=== PATIENT | female | born 1960 | race Caucasian/White ===

== ENCOUNTER 2017-10-09 09:24 | Emergency (ER) | payer MEDICAID ==
[~2017-10-09] VITALS: Ht 152.4 cm; Wt 78.5 kg
[2017-10-09 09:26] VITALS: BP 138/78
--- NOTE | 2017-10-09 09:32 | NUR ---
PT AMBULATES TO BED 11
--- NOTE | 2017-10-09 09:36 | NUR ---
57YO F TO ER W/C/O PELVIC/VAGINAL PAINAND CRAMPING/CENTRAL LBP X2 DAYS WITH BLOOD CLOTS. PT STATES THAT "I HAVE NOT HAD A PERIOD FOR 2 YRS, AND I HAVE NOT HAD SEX IN FIVE YEARS", PT DENIES ANY REACEN TRAUMA OR INJURY, PT STATES RED TINGED DISCHARGE, BURNING WITH URINATION AND NASEUA. AAOX4, LS CLEAR THROUGHOUT, BS HYPOACTIVE, ABD SOFT ROUND AND NON TENDER, TENDER NESS TO TOUCH IN CENTRAL LOWER BACK. ER MD MADE AWARE. PT POSITIONED FOR COMFORT. WILL CONTINUE TO MONITOR
--- NOTE | 2017-10-09 09:39 | NUR ---
Patient being evaluated by physician at bedside.
--- NOTE | 2017-10-09 09:40 | NUR ---
Female Editorial Manager accompanied female patient for Pelvic Exam WITH DR BATES
[2017-10-09 09:43] LABS: BILIRUBIN,URINE NEGATIVE (NEGATIVE); BLOOD, URINE MODERATE (NEGATIVE); NITRITE, URINE NEGATIVE (NEGATIVE); PH,URINE 5.5 (5.0-9.0); UGLUCOSE NEGATIVE (NEGATIVE)
[2017-10-09] MEDS ORDERED: IBUPROFEN 600 MG TAB PO ONE (09:45)
[2017-10-09] MEDS ORDERED: cefTRIAXone 1,000 MG in LIDOCAINE 1% ***ER ONLY *** 2.1 ML IM ONE (09:45)
[2017-10-09 09:53] LABS: APPEARANCE,URINE SLIGHTLY CLOUDY (CLEAR); COLOR,URINE YELLOW (YELLOW); LEUKOCYTE ESTERASE ,URINE 3+ (NEGATIVE)
[2017-10-09] MEDS ORDERED: cefTRIAXone 1,000 MG VIAL ONE (09:54)
[2017-10-09 10:00] LABS: RBC,URINE 3-10 (FEW) /HPF (0-5)
[2017-10-09] MEDS ORDERED: LIDOCAINE MPF 1% - 5 mL VIAL 5 ML ONE (10:00)
[2017-10-09 10:25] VITALS: BP 131/81
--- NOTE | 2017-10-09 10:25 | NUR ---
Patient discharged with v/s stable. Written and verbal after care instructions given and explained. Patient alert, oriented and verbalized understanding of instructions. Ambulatory with steady gait. All questions addressed prior to discharge. ID band removed. Patient advised to follow up with PMD. Rx of LEVAQUIN, MOTRIN given. Patient educated on indication of medication including possible reaction and side effects. Opportunity to ask questions provided and answered.
== END 2017-10-09 10:25 | disposition home or self-care (01) ==
LOC: MED 09:24
DX: N30.90 Cystitis, unspecified without hematuria (principal); N76.0 Acute vaginitis; I10 Essential (primary) hypertension; Z88.5 Allergy status to narcotic agent; Z88.2 Allergy status to sulfonamides
CPT/HCPCS: 81001; 87070; 87086; 87186; 96372; 99284; J0696; J2001

== ENCOUNTER 2017-12-13 17:17 | Emergency (ER) | payer MEDICAID ==
[~2017-12-13] VITALS: Ht 152.4 cm; Wt 78.0 kg
--- NOTE | 2017-12-13 17:22 | NUR ---
PT TO BED 8 VIA WHEELCHAIR
[2017-12-13 17:27] VITALS: BP 158/72
--- NOTE | 2017-12-13 17:38 | NUR ---
PT C/O LT LEG PAIN 12/09 S/P FALL YESTERDAY HEARD A "CRACK"; DENIES OTHER INJURY, UNABLE TO AMBULATE. PATIENT STATES PAIN OF 9/10 AT THIS TIME; VSS; PATIENT POSITIONED FOR COMFORT; HOB ELEVATED; BEDRAILS UP X1; BED DOWN. ER MD MADE AWARE OF PT STATUS.
--- NOTE | 2017-12-13 17:44 | NUR ---
XRAY AT BEDSIDE
--- NOTE | 2017-12-13 19:02 | NUR ---
Patient being evaluated by physician at bedside.
--- NOTE | 2017-12-13 19:09 | NUR ---
REPORT GIVEN TO JIM TROTTER.
--- NOTE | 2017-12-13 19:10 | NUR ---
pt staying in bed. dr. lópez at bedside to assess pt. pt unable to ambulate.
[2017-12-13] MEDS ORDERED: KETOROLAC 60 MG/2 ML VIAL IM ONE (19:30)
--- NOTE | 2017-12-13 20:14 | NUR ---
L KNEE IMMOBILIZER AND CRUTCHES PLACED BY EMT
--- NOTE | 2017-12-13 20:14 | NUR ---
Patient discharged with v/s stable. Written and verbal after care instructions given and explained. Patient alert, oriented and verbalized understanding of instructions. Ambulatory with crutches. All questions addressed prior to discharge. ID band removed. Patient advised to follow up with PMD. Rx of voltaren given. Patient educated on indication of medication including possible reaction and side effects. Opportunity to ask questions provided and answered.
--- NOTE | 2017-12-13 20:20 | NUR ---
at bedside to explain to pt again for the x-ray report and follow up.
[2017-12-13 20:23] VITALS: BP 139/73
== END 2017-12-13 20:23 | disposition home or self-care (01) ==
LOC: MED 17:17
DX: S83.92XA Sprain of unspecified site of left knee, initial encounter (principal); I10 Essential (primary) hypertension; Z88.6 Allergy status to analgesic agent; W11.XXXA Fall on and from ladder, initial encounter; Y93.89 Activity, other specified; Y92.89 Other specified places as the place of occurrence of the external cause; Y99.8 Other external cause status
CPT/HCPCS: 29505; 73552; 73560; 96372; 99284; J1885; Q0092

== ENCOUNTER 2018-01-14 11:24 | Emergency (ER) | payer MEDICAID ==
[~2018-01-14] VITALS: Ht 152.4 cm; Wt 81.3 kg
[2018-01-14 11:30] VITALS: BP 163/82
[2018-01-14] MEDS ORDERED: ALBUTEROL SULFATE/IPRATROPIU 3 ML SOL IH ONE (11:55)
[2018-01-14 13:24] VITALS: BP 155/79
== END 2018-01-14 13:22 | disposition home or self-care (01) ==
LOC: MED 11:24
DX: J20.9 Acute bronchitis, unspecified (principal); I10 Essential (primary) hypertension; F17.200 Nicotine dependence, unspecified, uncomplicated; Z88.5 Allergy status to narcotic agent
CPT/HCPCS: 36415; 71045; 87804; 94640; 99285; J7620; Q0092

== ENCOUNTER 2018-04-21 13:37 | Emergency (ER) | payer MEDICAID ==
[~2018-04-21] VITALS: Ht 152.4 cm; Wt 79.8 kg
[2018-04-21 13:45] VITALS: BP 170/85
--- NOTE | 2018-04-21 15:00 | NUR ---
BIB SELF WITH C/O CHEST PAIN X EARLIER TODAY, PRESSURE 7/10, NON RADIATING AT THIS TIME, COUGH X 3 DAYS WITH GREEN MUCUS, + NAUSEA, DIARRHEA, - VOMITING PMH: HTN, DEPRESSION, ANXIETY RX: AMITRIPTILINE, LISINOPRIL
[2018-04-21] MEDS ORDERED: predniSONE 20 MG TAB PO ONE (15:25)
[2018-04-21] MEDS ORDERED: ALBUTEROL 0.083% 2.5 MG/3 ML NEBU INH ONE ×2 (15:25→16:35)
[2018-04-21] MEDS ORDERED: IPRATROPIUM 0.02% 0.5 MG/2.5 ML NEBU INH ONE (15:25)
[2018-04-21 15:59] LABS: APPEARANCE,URINE CLEAR (CLEAR); BILIRUBIN,URINE 1+ (NEGATIVE); BLOOD, URINE 1+ (NEGATIVE); COLOR,URINE YELLOW (YELLOW); LEUKOCYTE ESTERASE ,URINE 1+ (NEGATIVE); NITRITE, URINE NEGATIVE (NEGATIVE); UGLUCOSE NEGATIVE (NEGATIVE)
[2018-04-21 16:20] LABS: RBC,URINE 0-5 (RARE) /HPF (0-5); WBC,URINE 0-5 (RARE) /HPF (0-5)
--- NOTE | 2018-04-21 17:44 | NUR ---
Patient discharged with v/s stable. Written and verbal after care instructions given and explained. Patient alert, oriented and verbalized understanding of instructions. Ambulatory with steady gait. All questions addressed prior to discharge. ID band removed. Patient advised to follow up with PMD. Rx of CEPHALAXIN, TESSALON & ALBUTEROL given. Patient educated on indication of medication including possible reaction and side effects. Opportunity to ask questions provided and answered.
[2018-04-21 17:45] VITALS: BP 132/67
== END 2018-04-21 17:44 | disposition home or self-care (01) ==
LOC: MED 13:37
DX: J45.909 Unspecified asthma, uncomplicated (principal); N39.0 Urinary tract infection, site not specified; R19.7 Diarrhea, unspecified; I10 Essential (primary) hypertension; F41.9 Anxiety disorder, unspecified; Z88.2 Allergy status to sulfonamides; Z88.5 Allergy status to narcotic agent
CPT/HCPCS: 71045; 81001; 87086; 94640; 99284; J7613; J7644; Q0092; 93005; J7512

== ENCOUNTER 2018-06-27 09:01 | Emergency (ER) | payer MEDICAID ==
[~2018-06-27] VITALS: Ht 152.4 cm; Wt 82.1 kg
--- NOTE | 2018-06-27 09:09 | NUR ---
Patient ambulated to bed 11. RN evaluating patient at bedside.
[2018-06-27 09:10] VITALS: BP 141/83
--- NOTE | 2018-06-27 09:24 | NUR ---
PATIENT PRESENTS TO ED WITH LOWER BACK PAIN X YESTERDAY---PT STATES NO PRIOR HX OF BACK PAIN STATES WAS AWOKEN WITH PAIN--DENIES RECENT INJURY/TRAUMA AMBULATORY WITH SLOW GUARDED STEADY GAIT .. DENIES N/V/D; SKIN IS PINK/WARM/DRY; AAOX4 WITH EVEN AND STEADY GAIT; LUNGS CLEAR BL; HR EVEN AND REGULAR; PT DENIES ANY FEVER, CP, SOB, OR COUGH AT THIS TIME; PATIENT STATES PAIN OF 8/10 AT THIS TIME; VSS; PATIENT POSITIONED FOR COMFORT; HOB ELEVATED; BEDRAILS UP X2; BED DOWN. ER MD MADE AWARE OF PT STATUS.
[2018-06-27] MEDS ORDERED: LACTULOSE 20 GM/30 ML UDC PO ONE (09:25)
[2018-06-27] MEDS ORDERED: KETOROLAC 60 MG/2 ML VIAL IM ONE (09:25)
[2018-06-27 10:05] VITALS: BP 139/79
--- NOTE | 2018-06-27 10:05 | NUR ---
Patient discharged with v/s stable. Written and verbal after care instructions given and explained. Patient alert, oriented and verbalized understanding of instructions. Ambulatory with steady gait. All questions addressed prior to discharge. ID band removed. Patient advised to follow up with PMD. Rx of COLACE,TRAMADOL given. Patient educated on indication of medication including possible reaction and side effects. Opportunity to ask questions provided and answered.
== END 2018-06-27 10:05 | disposition home or self-care (01) ==
LOC: MED 09:01
DX: M54.5 Low back pain (principal); I10 Essential (primary) hypertension; F41.9 Anxiety disorder, unspecified; Z88.5 Allergy status to narcotic agent; Z88.8 Allergy status to other drugs, medicaments and biological substances
CPT/HCPCS: 81002; 96372; 99283; J1885

== ENCOUNTER 2018-07-06 22:14 | Emergency (ER) | payer MEDICAID ==
[~2018-07-06] VITALS: Ht 152.4 cm; Wt 79.8 kg
[2018-07-06 22:15] VITALS: BP 141/78
--- NOTE | 2018-07-06 22:15 | NUR ---
TO BED # 11 AMBULATORY
[2018-07-06] MEDS ORDERED: predniSONE 20 MG TAB PO ONE (23:00)
[2018-07-06] MEDS ORDERED: ALBUTEROL SULFATE/IPRATROPIU 3 ML SOL IH ONE ×2 (23:00→23:30)
--- NOTE | 2018-07-06 23:15 | NUR ---
PT TO ED WITH C/O COUGH, SOB INCREASING OVER 2 DAYS. PT DENIES CP. WHEEZES NOTED TO BILATERAL LOBES. NO DISTRESS NOTED AT THIS TIME. PT ABLE TO ANSWER QUESTIONS APPROPRIATLEY AND WITHOUT DIFFICULTY. PT PLACED INTO BED, PENDING MD KIM.
[2018-07-07 00:36] VITALS: BP 140/75
--- NOTE | 2018-07-07 00:36 | NUR ---
Patient discharged with v/s stable. Written and verbal after care instructions given and explained. Patient alert, oriented and verbalized understanding of instructions. Ambulatory with steady gait. All questions addressed prior to discharge. ID band removed. Patient advised to follow up with PMD. Rx of PREDNISONE, CLARITIN, ALBUTEROL given. Patient educated on indication of medication including possible reaction and side effects. Opportunity to ask questions provided and answered.
== END 2018-07-07 00:36 | disposition home or self-care (01) ==
LOC: MED 22:14
DX: J45.901 Unspecified asthma with (acute) exacerbation (principal); I10 Essential (primary) hypertension; F17.210 Nicotine dependence, cigarettes, uncomplicated; Z88.5 Allergy status to narcotic agent; Z88.8 Allergy status to other drugs, medicaments and biological substances
CPT/HCPCS: 71045; 94640; 99284; J7512; J7620; Q0092

== ENCOUNTER 2018-07-15 15:29 | Inpatient (IN) | payer MEDICAID ==
[~2018-07-15] VITALS: Ht 152.4 cm; Wt 83.9 kg
[2018-07-15 15:33] VITALS: BP_SYST 137; BP_SYST 96; BP_DIAS 43; BP_DIAS 79
--- NOTE | 2018-07-15 15:40 | NUR ---
PATIENT PRESENTS TO ED WITH C/O ATYPICAL CHEST PRESSURE. PAIN 10/10 WHEN DEEP BREATHING. PT HAS INHALER AND PREDNISONE PACK AT HOME. HX OF ADULT ASTHMA/VERTIGO/ANXIETY/DEPRESSION/HTN . PT DENIES N/V/D; SKIN IS PINK/WARM/DRY; AAOX4 WITH EVEN AND STEADY GAIT; LUNGS CLEAR BL; HR EVEN AND REGULAR; PATIENT POSITIONED FOR COMFORT; HOB ELEVATED; BEDRAILS UP X2; BED DOWN. ER MD MADE AWARE OF PT STATUS.
--- NOTE | 2018-07-15 16:00 | NUR ---
PT WHEELCHAIRED TO ER BED 09
[2018-07-15] MEDS ORDERED: ALBUTEROL SULFATE/IPRATROPIU 3 ML SOL IH ONE (16:40)
[2018-07-15 16:45] LABS: APPEARANCE,URINE CLEAR (CLEAR); BILIRUBIN,URINE NEGATIVE (NEGATIVE); COLOR,URINE YELLOW (YELLOW); LEUKOCYTE ESTERASE ,URINE NEGATIVE (NEGATIVE); NITRITE, URINE NEGATIVE (NEGATIVE); UGLUCOSE 3+ (NEGATIVE)
--- NOTE | 2018-07-15 16:55 | NUR ---
HHN TX WAS GIVEN.
[2018-07-15 17:01] LABS: BLOOD, URINE NEGATIVE (NEGATIVE)
[2018-07-15 17:03] LABS: BASOPHILS # (AUTO) 0.1 K/uL (0.00-0.22); BASOPHILS % (AUTO) 0.8 % (0.0-2.0); HEMATOCRIT 42.9 % (36-48); LYMPHOCYTES # (AUTO) 1.5 K/uL (2.5-16.5); LYMPHOCYTES % (AUTO) 9.2 % (20.5-51.1); MEAN CORPUSCULAR HEMOGLOBIN 29 pg (27-31); MEAN CORPUSCULAR HGB CONC 33 g/dL (33-37); MEAN CORPUSCULAR VOLUME 89.1 fL (80-94); MONOCYTES # (AUTO) 0.6 K/uL (0.8-1.0); MONOCYTES % (AUTO) 3.5 % (1.7-9.3); NEUTROPHILS # (AUTO) 13.7 K/uL (1.8-7.7); NEUTROPHILS % (AUTO) 86.5 % (42.2-75.2); PLATELET COUNT (AUTO) 374 K/uL (140-450); RED BLOOD CELL COUNT(AUTO) 4.82 MIL/uL (4.20-5.40); RED CELL DISTRIBUTION WIDTH 13.9 % (11.6-13.7); WHITE BLOOD COUNT (AUTO) 15.8 K/uL (4.8-10.8)
[2018-07-15 17:20] LABS: ALBUMIN 3.2 g/dL (3.4-5.0); ANION GAP 12.1 (8-16); CARBON DIOXIDE 28.2 mmol/L (21-32); CREATININE 0.9 mg/dL (0.6-1.3); POTASSIUM 4.3 mmol/L (3.5-5.1); TOTAL BILIRUBIN 0.2 mg/dL (0.0-1.0)
--- NOTE | 2018-07-15 19:05 | NUR ---
RECIEVED REPORT FROM DAY SHIFT RNSCOTT. WILL TAKE OF CARE FOR PATIENT AT THIS TIME.
--- NOTE | 2018-07-15 19:07 | NUR ---
DR CARREON AT BEDSIDE.
[2018-07-15] MEDS ORDERED: ZOLPIDEM 5 MG TAB PO PRN (19:50)
[2018-07-15] MEDS ORDERED: ACETAMINOPHEN 325 MG TAB PO PRN (19:50)
[2018-07-15] MEDS ORDERED: ONDANSETRON 4 MG/2 ML VIAL IM/IVP PRN (19:50)
[2018-07-15] MEDS ORDERED: DOCUSATE SODIUM 100 MG GELCAP PO PRN (19:50)
--- NOTE | 2018-07-15 20:05 | NUR ---
RECEIVED REPORT FROM ER NURSE, FER. PT ALERT AND ORIENTED X4. PT AMBULATORY. 20G RT HAND S/L, INTACT AND PATENT. SKIN INTACT. SAFETY PRECAUTIONS IN PLACE, BED RAILS UP X 2. CALL LIGHT WITHIN REACH. WILL CONTINUE TO MONITOR.
--- NOTE | 2018-07-15 20:09 | NUR ---
PATIENT ADMITTED TO TELE UNIT UNDER THE CARE OF DR JOYNER. REPORT GIVEN TO TELE NURSE. PATEINT STABLE DURING GURNEY TRANSFER TO ROOM 119-B.
[2018-07-15 20:17] LABS: PROTHROMBIN TIME 9.3 secs (10.8-13.4)
[2018-07-15 20:29] LABS: CHOL/HDL RATIO 4.1 (1-4.5); MAGNESIUM 1.9 mg/dL (1.8-2.4); PHOSPHORUS 3.6 mg/dL (2.5-4.9); THYROID STIMULATING HORMONE 0.63 uIU/mL (0.34-3.74)
[2018-07-15] MEDS ORDERED: ALBUTEROL SULFATE/IPRATROPIU 3 ML SOL IH PRN (20:30)
--- NOTE | 2018-07-15 20:30 | NUR ---
DR FLORES AT BEDSIDE EXAMINING THE PT. RT SPAULDING AT BESIDE, PLACED PT ON 1L 012 VIA N.C
[2018-07-15] MEDS ORDERED: BENZOCAINE/MENTHOL 1 LOZ MM PRN (20:40)
[2018-07-15] MEDS ORDERED: KETOROLAC 15 MG/ML VIAL IVP PRN (20:40)
[2018-07-15] MEDS ORDERED: CYCLOBENZAPRINE 10 MG TAB PO SCH (20:45)
[2018-07-15 20:49] LABS: BARBITURATE, URINE NEG. ng/ml (NEG <=200); BENZODIAZEPINE, URINE NEG. ng/mL (NEG <=200); CANNABINOID, URINE NEG. ng/mL (NEG <=50); COCAINE, URINE NEG. ng/mL (NEG <=300); OPIATE, URINE NEG. ng/mL (NEG <=2000); PHENCYCLIDINE SCREEN,URINE NEG. ng/mL (NEG <=25)
[2018-07-15] MEDS ORDERED: INSULIN LISPRO SLIDING SCALE 100 UNITS/ML VIAL SUBQ PRN (20:50)
[2018-07-15] MEDS ORDERED: DEXTROSE 50% 50 ML SYR IVP PRN (20:50)
[2018-07-15] MEDS: guaiFENesin 600 MG TABER PO SCH (21:31)
[2018-07-15] MEDS ORDERED: ELA10 PO (21:37)
[2018-07-15] MEDS ORDERED: ASPI-1718 PO (21:37)
[2018-07-15] MEDS ORDERED: DONE10TA10 PO (21:37)
[2018-07-15] MEDS ORDERED: LISI-420 PO (21:37)
[2018-07-15] MEDS: BLOOD GLUCOSE MONITORING 1 DEV DEV FS SCH (21:51)
--- NOTE | 2018-07-15 21:51 | NUR ---
PT BLOOD GLUCOSE 175, 2 UNITS OF INSULIN PER SLIDING SCALE. PT REFUSED INSULIN.
[2018-07-15] MEDS: AMITRIPTYLINE 10 MG TAB PO SCH (22:00)
[2018-07-15] MEDS: DONEPEZIL 10 MG TAB PO SCH (22:01)
[2018-07-15] MEDS: NACL 0.9% 1,000 ML IV SCH (22:03)
[2018-07-15] MEDS ORDERED: MECLIZINE 25 MG TAB PO PRN (22:10)
[2018-07-15] MEDS ORDERED: predniSONE 10 MG TAB PO SCH (23:00)
[2018-07-15] MEDS ORDERED: ATORVASTATIN 20 MG TAB PO SCH (23:20)
[2018-07-15] MEDS ORDERED: LORATADINE 10 MG TAB PO SCH (23:20)
[2018-07-16] VITALS: BP 121/52
--- NOTE | 2018-07-16 00:29 | NUR ---
SPOKE WITH SATURATOR TENDER AT [facility] IN [facility]. SHE SAID THAT [employer] OPEN AT 0800 AM AND THAT SHE DOESN'T HAVE ACCESS TO [employer] FAX NUMBER. WILL ENDORSE TO DAYSHIFT TO CALL BACK IN THE AM.
--- NOTE | 2018-07-16 01:44 | NUR ---
ROUNDED ON PT. ASSISTED PT TO GET UP TO THE BATHROOM. PT DOES NOT WANT TO WEAR N.C. HELPED PT BACK IN BED. NO C/O DISCOMFORT. ALL NEEDS ATTENDED TO. WILL CONTINUE TO MONITOR.
[2018-07-16] MEDS: LORazepam 2 MG/ML VIAL IM/IVP PRN ×2 (02:57→23:01)
--- NOTE | 2018-07-16 02:59 | NUR ---
PT REPORTS FEELING ANXIOUS. PT GIVEN MEDICATION FOR ANXIETY PER ORDERS.
[2018-07-16 04:02] VITALS: BP 151/61
--- NOTE | 2018-07-16 04:05 | NUR ---
VITALS TAKEN. PT IN BED SLEEPING. NO VISIBLE SIGNS OF DISTRESS. BREATHING SYMMETRICAL AND UNLABORED. SAFETY PRECAUTIONS IN PLACE. CALL LIGHT WITHIN REACH. WILL CONTINUE TO MONITOR.
[2018-07-16] MEDS: BLOOD GLUCOSE MONITORING 1 DEV DEV FS SCH ×4 (06:44→20:47)
--- NOTE | 2018-07-16 07:20 | NUR ---
ENDORSED TO AM NURSEVINCENT. PT IN STABLE CONDITION.
--- NOTE | 2018-07-16 07:22 | NUR ---
RECEIVED BEDSIDE REPORT FROM BREWMASTER NURSE FOR CONTINUITY OF CARE. PATIENT IS AOX4. PATIENT IS RESTING ON BED AT THIS TIME. PATIENT IS ABLE TO FOLLOW COMMANDS AND MAKE NEEDS KNOWN. RESPIRATION IS EVEN AND UNLABORED. PATIENT IS ON RA AND SPO2 IS AT 94% AT THIS TIME. DENIES PAIN AND SOB. NO SIGNS OF DISTRESS NOTED. IV ON RAC 20G, INTACT AND CLEAN, INFUSING PER MD ORDER. SKIN CLEAN AND INTACT. PATIENT IS ABLE TO AMBULATE WITH STANDBY ASSISTANCE. DISCUSSED PLAN OF CARE WITH PATIENT AND PATIENT VERBALIZED UNDERSTANDING. TELE MONITOR ATTACHED. BED IN LOW POSITION AND CALL LIGHT WITHIN REACH. INSTRUCTED PATIENT TO USE THE CALL LIGHT FOR ANY ASSISTANCE AND PATIENT WAS AWARE.
[2018-07-16] MEDS: ALBUTEROL SULFATE/IPRATROPIU 3 ML SOL IH SCH ×3 (07:51→19:54)
[2018-07-16 08:00] VITALS: BP 138/71
[2018-07-16 08:29] LABS: BASOPHILS # (AUTO) 0.1 K/uL (0.00-0.22); BASOPHILS % (AUTO) 0.6 % (0.0-2.0); EOSINOPHILS % (AUTO) 0.1 % (0.0-4.0); HEMATOCRIT 42.7 % (36-48); HEMOGLOBIN 13.7 g/dL (12.0-16.0); LYMPHOCYTES # (AUTO) 2.2 K/uL (2.5-16.5); LYMPHOCYTES % (AUTO) 14.7 % (20.5-51.1); MEAN CORPUSCULAR HEMOGLOBIN 29 pg (27-31); MEAN CORPUSCULAR HGB CONC 32 g/dL (33-37); MEAN CORPUSCULAR VOLUME 88.7 fL (80-94); MONOCYTES # (AUTO) 0.4 K/uL (0.8-1.0); MONOCYTES % (AUTO) 2.8 % (1.7-9.3); NEUTROPHILS # (AUTO) 12.1 K/uL (1.8-7.7); NEUTROPHILS % (AUTO) 81.8 % (42.2-75.2); PLATELET COUNT (AUTO) 349 K/uL (140-450); RED BLOOD CELL COUNT(AUTO) 4.81 MIL/uL (4.20-5.40); WHITE BLOOD COUNT (AUTO) 14.8 K/uL (4.8-10.8)
--- NOTE | 2018-07-16 08:41 | NUR ---
PATIENT HAS BEEN SCREENED AND CATEGORIZED MODERATE NUTRITION RISK. PATIENT WILL BE SEEN WITHIN 3-5 DAYS OF ADMISSION. 07/18/18NAI [address]ILL[address]
[2018-07-16] MEDS ORDERED: predniSONE 10 MG TAB PO SCH (09:00)
[2018-07-16] MEDS ORDERED: ATORVASTATIN 20 MG TAB PO SCH (09:00)
[2018-07-16] MEDS ORDERED: LORATADINE 10 MG TAB PO SCH (09:00)
[2018-07-16 09:03] LABS: ANION GAP 10.2 (8-16); CARBON DIOXIDE 28.2 mmol/L (21-32); CREATININE 0.7 mg/dL (0.6-1.3); POTASSIUM 4.4 mmol/L (3.5-5.1)
[2018-07-16] MEDS: ASPIRIN 81 MG TAB.CHEW PO SCH (09:57)
[2018-07-16] MEDS: METOPROLOL 25 MG TAB PO SCH (09:58)
[2018-07-16] MEDS: guaiFENesin 600 MG TABER PO SCH ×2 (09:58→20:49)
[2018-07-16] MEDS: FAMOTIDINE 20 MG TAB PO SCH (09:58)
[2018-07-16] MEDS: LISINOPRIL 20 MG TAB PO SCH (09:58)
[2018-07-16] MEDS: CYCLOBENZAPRINE 10 MG TAB PO SCH ×3 (09:59→17:28)
--- NOTE | 2018-07-16 09:59 | NUR ---
ADMINISTERED MEDS PER MD ORDER, PATIENT TOLERATED WELL. PATIENT IS SITTING UP ON BED AND LOOKING AT HER CELLPHONE. SHE IS ON RA AND SPO2 IS AT 96% AT THIS TIME. NO SIGNS OF DISTRESS NOTED. PER PATIENT, SHE DIDN'T EAT HER BREAKFAST BECAUSE SHE DIDN'T LIKE IT AND SHE WOULD LIKE A SANDWICH. CALLED [employer] AND ORDERED A SANDWICH. PER [facility] TEST DRIVER, THEY WILL MAKE IT AND SEND IT TO THE UNIT ONCE ITS READY. INFORMED THE INFOR TO PATIENT AND PATIENT SAID "OK." INSTRUCTED PATIENT TO USE THE CALL LIGHT FOR ANY ASSISTANCE AND PATIENT WAS AWARE. TELE MONITOR IN PLACE. SAFETY MEASURES IN PLACE.
--- NOTE | 2018-07-16 10:13 | NUR ---
RECEIVED SANDWICH AND DELIVERED TO PATIENT. DR AVILES IS TALKING TO PATIENT AT BEDSIDE. NO SIGNS OF DISTRESS NOTED. SAFETY MEASURES IN PLACE.
--- NOTE | 2018-07-16 11:30 | NUR ---
PATIENT IS RESTING ON BED AT THIS TIME. DENIES OF PAIN AND SOB. SHE IS ON RA AND SPO2 IS AT 95% AT THIS TIME. NO SIGNS OF DISTRESS NOTED. BED IN LOW POSITION AND CALL LIGHT WITHIN REACH. INSTRUCTED PATIENT TO USE THE CALL LIGHT FOR ANY ASSISTANCE AND PATIENT WAS AWARE.
[2018-07-16 12:00] VITALS: BP 108/49
--- NOTE | 2018-07-16 12:00 | NUR ---
DISCLOSURE OF PT'S HEALTH INFORMATION SIGNED BY PT AND FAXED TO [facility] DEPT. FAX CONFIRMATION ATTACHED TO PT'S CHART.
--- NOTE | 2018-07-16 12:03 | NUR ---
CHECKED PATIENT'S BLOOD GLUCOSE AND RECEIVED 176. INFORMED PATIENT THAT HER BLOOD GLUCOSE IS 176 AND INSULIN OF 2 UNITS IS NEEDED BASE ON THE HUMALOG SLIDING SCALE. PATIENT SAID, " NO, I DON'T WANT AND NEED ANY INSULIN. I DONT HAVE DIABETES." EDUCATION PROVIDED TO PATIENT AND PATIENT VERBALIZED UNDERSTANDING, BUT SHE INSISTED OF NOT WANT TO GET ANY INSULIN.
[2018-07-16] MEDS: NACL 0.9% 1,000 ML IV SCH (12:24)
--- NOTE | 2018-07-16 12:30 | NUR ---
PATIENT COMPLAINED THAT SHE DOES NOT LIKE HER LUNCH. PER PATIENT, " IT TASTES SO BAD. CAN I HAVE A SANDWICH INSTEAD?" CALLED [facility] AND LEFT A VOICE MESSAGE.
--- NOTE | 2018-07-16 12:40 | NUR ---
RECEIVED SANDWICH AND DELIVERED TO PATIENT'S ROOM. PATIENT REQUESTED TO SIT UP ON CHAIR NEXT TO BED. ASSISTED PATIENT TO GET UP FROM BED AND SIT ON CHAIR. NO SIGNS OF DISTRESS NOTED. TELE MONITOR ATTACHED. SAFETY MEASURES IN PLACE.
--- NOTE | 2018-07-16 15:40 | NUR ---
PATIENT IS TALKING TO FORKLIFT TRUCK OPERATOR AND FAMILY AT BEDSIDE. DENIES PAIN AND SOB. NO SIGNS OF DISTRESS NOTED. SAFETY MEASURES IN PLACE. TELE MONITOR ATTACHED. BED IN LOW POSITION AND CALL LIGHT WITHIN REACH.
[2018-07-16 16:00] VITALS: BP 105/60
--- NOTE | 2018-07-16 16:28 | NUR ---
CHECKED BLOOD GLUCOSE AND RECEIVED 198. PATIENT SAID, " I DO NOT WANT INSULIN AND DON'T HAVE DIABETES." EDUCATION PROVIDED AND NOTIFIED DR MAGALLANES THAT PATIENT DOES NOT WANT TO TAKE ANY INSULIN. PER DR MAGALLANES, SHE WILL GO AND TALK TO PATIENT AT BEDSIDE SHORTLY.
--- NOTE | 2018-07-16 16:31 | NUR ---
DC PLANNING ASSESSMENT: DATE: 07/16/2018 TIME: 1545 ADMITTING MD: Geeta Rolon DO INFORMATION OBTAINED FORM: Patient ADMITTED WITHIN 30 DAYS: no INITIAL DC SCREENING FROM: ER PRIMARY CARE PHYSICIAN: Guy Rajan MD ( [facility]) PCP PHONE NUMBER: PRIMARY LANGUAGE: Taiwanese FINANCIAL RESOURCES: [facility] Medical EMERGENCY CONTACT NAME: Caitlin Olivera () EMERGENCY CONTACT NUMBER: [phone] PRE-ADMISSION BASELINE ASSESSMENT: COGNITION: ALERT, AWAKE AND ORIENTED x 4 AMBULATION ABILITY: INDEPENDENT ADLs : INDEPENDENT OTHER PHYSICAL LIMITATION: None USUAL LIVING ARRANGEMENTS: PATIENT LIVE WITH FRIEND ADMITTED FROM : HOME OTHER DME USES AT HOME: NONE CURRENTLY ON HEMODIALYSIS: No CURRENT ASSESSMENT: COGNITION: AWAKE, ALERT AND ORIENTED x4 PATIENT KNOWS ADMITTING DIAGNOSIS: YES, ASTHMA EXACERBATION PATIENT KNOWS PROGNOSIS AND PLAN OF CARE: YES, POSSIBLE STRESS TEST PT GOALS/PREFERENCE FOR ENCOUNTER: POSSIBLE DC CURRENT AMBULATORY ABILITY: INDEPENDENT CURRENT ADLs ABILITY: INDEPENDENT CURRENT PHYSICAL LIMITATION: NONE FAMILY SUPPORT: YES, SISTER AND UNCLE ( [place]OIL[place] GREEN) AVAILABLE FAMILY/FRIENDS TO PROVIDE FOLLOW UP CARE In HOME: YES, UNCLE ANY SS NEED ABOVE MARKED, REFER TO CURRICULUM CONSULTANT: NO DISCHARGE NEEDS/ PLAN: HOME WITH FRIEND OTHER DISCHARGE NEEDS/ PLAN: CM TO FOLLOW UP NEEDED OTHER ANTICIPATED DC NEEDS: CM TO FOLLOW UP NEEDED TRANSPORTATION MANAGEMENT ABILITY: PRIVATE CAR ( FAMILY WILL PROVIDE TRANSPORTATION) OTHER DME NEEDS: CM TO FOLLOW UP NEEDED DISCHARGE PLAN DISCUSSED WITH : PATIENT AT BEDSIDE PATIENT CHOICE OF VENDOR LIST GIVEN TO PATIENT: NO RESOURCE LIST OR TABLE GIVEN TO PATIENT: NO QUALITY MEASURES DATA GIVEN TO PATIENT: NO READMISSION RISK IDENTIFIED: YES MANAGED CARE PT ADVICE OF IN NETWORK RESOURCES& ACCESS: YES DC PLAN COMMENTS: DISCUSSED WITH PATIENT DC PLAN AT BEDSIDE. PATIENT STATED SHE WOULD LIKE TO BE DISCHARGED ONCE STABLE. PATIENT STATED PLAN IS TO DC HOME AND WILL BE RETURNING TO WORK UPON DC. SHE CURRENTLY LIVES WITH A FRIEND AT A HOUSE AT [place]. UPON DISCHARGE FAMILY WILL BE ABLE TO PROVIDE TRANSPORTATION. CM TO FOLLOW UP NEEDED.
--- NOTE | 2018-07-16 16:50 | NUR ---
PATIENT IS AMBULATING AROUND THE CAT WITH STEADY GAIT. HER UNCLE IS WALKING WITH HER. NO SIGNS OF DISTRESS NOTED.
--- NOTE | 2018-07-16 17:29 | NUR ---
RE-ATTEMPT TO ASK PATIENT IF SHE WANTS TO GET INSULIN DUE TO HIGH GLUCOSE 198, PATIENT SAID " I AM NOT GOING TO CHANGE MY MIND. I AM NOT TAKING ANY INSULIN." EDUCATION PROVIDED TO PATIENT. PATIENT IS WATCHING TV ON BED AT THIS TIME. NO SIGNS OF DISTRESS NOTED. SHE IS ON RA AND SPO2 IS 94%. SAFETY MEASURES IN PLACE. TELE MONITOR ATTACHED.
--- NOTE | 2018-07-16 17:36 | NUR ---
DR MAGALLANES IS TALKING TO PATIENT AT BEDSIDE ON REGARDS OF HER HIGH BLOOD GLUCOSE. NO SIGNS OF DISTRESS NOTED.
--- NOTE | 2018-07-16 17:53 | NUR ---
PATIENT AGREED TO GET INSULIN AFTER DR MAGALLANES SPOKE WITH HER. ADMINISTERED 2 UNITS OF HUMALOG FOR BLOOD GLUCOSE 198. PATIENT TOLERATED WELL. NO SIGNS OF DISTRESS NOTED. SAFETY MEASURES IN PLACE. TELE MONITOR ATTACHED. BED IN LOW POSITION AND CALL LIGHT WITHIN REACH. INSTRUCTED PATIENT TO USE THE CALL LIGHT FOR ANY ASSISTANCE AND PATIENT WAS AWARE.
--- NOTE | 2018-07-16 19:27 | NUR ---
ENDORSED PATIENT AT BEDSIDE TO QUALIFICATIONS EXAMINER NURSE FOR CONTINUITY OF CARE. PATIENT IS IN STABLE CONDITION.
--- NOTE | 2018-07-16 19:27 | NUR ---
PT CARE ENDORSED AT BEDSIDE FORM VINCENT FERNANDEZ DAYSHIFT NURSE, PT IN STABLE CONDITION.
[2018-07-16 20:00] VITALS: BP 141/69
--- NOTE | 2018-07-16 20:00 | NUR ---
PT SITTING UP IN BED FAMILY AT BEDSIDE, V/S FOLLOWS T 97.7 P 84 R 18 B/P 117/63 02 93% ON ROOM AIR. PT HAS N/C AT BEDSIDE BUT DOESN'T WANT TO USE IT. SHE SAYS SHE FEELS COMFORTABLE WITH THE SUPPLEMENTAL 02 AT BEDSIDE INCASE SHE NEEDS IT. PT HAS IV SITE 20G ON RIGHT HAND. SITE LEAKING A BIT AND PT C/O OF MILD PAIN WITH FLUSHING BUT SHE DIDN'T WANT ANOTHER IV SITE. IV FLUSHED PATENET. PT DENIES PAIN AT THIS TIME.
[2018-07-16] MEDS: DONEPEZIL 10 MG TAB PO SCH (20:48)
[2018-07-16] MEDS: AMITRIPTYLINE 10 MG TAB PO SCH (20:49)
[2018-07-16] MEDS ORDERED: DONEPEZIL 10 MG TAB PO SCH (21:00)
[2018-07-16] MEDS ORDERED: AMITRIPTYLINE 10 MG TAB PO SCH (21:00)
--- NOTE | 2018-07-16 21:00 | NUR ---
PT GIVEN ORDERED MEDICATION AT THIS TIME. IV SITE FLUSHED PATNET. PT SIAD IT HURT WHEN FLUSHED. PT DID AGREE TO LET ASSIGNED NURSE GIVEN HER ANOTHER IV SITE. OLD SITE TAKEN OUT , WILL RETURN TO PUT IN ANOTHER IV SITE.
--- NOTE | 2018-07-16 21:30 | NUR ---
NEW IV SITE PROVIDED FOR PT IT IS A 24 GUAGE ON LEFT HAND. IV FLUID N/S RUNNING AT 60MLS/HR.
--- NOTE | 2018-07-16 23:15 | NUR ---
PT C/O OF FEELING ANXIOUS, PT GIVEN PRN/IVP ATIVAN. WILL MONITOR FOR EFFECT.
[2018-07-17] VITALS: BP 117/63
--- NOTE | 2018-07-17 00:30 | NUR ---
PT SLEEPING IN BED WITH IV SITE ON LEFT HAND INTACT AND FLUSHED PATENT. NORMAL SALINE RUNNING AT 60MLS/HER ORDERED. V/S FOLLOWS T 97 P 58 R 18 B/P 141/69 02 96% ON ROOM AIR. ALL FALLS PROTOCOL OBSERVED.
[2018-07-17 04:00] VITALS: BP 108/53
[2018-07-17] MEDS: NACL 0.9% 1,000 ML IV SCH (05:06)
--- NOTE | 2018-07-17 06:36 | NUR ---
FINGERSTICK IS 74 PT GIVEN SMALL APPLE JUICE
[2018-07-17] MEDS: ALBUTEROL SULFATE/IPRATROPIU 3 ML SOL IH SCH ×2 (07:09→13:20)
--- NOTE | 2018-07-17 07:10 | NUR ---
GAVE REPORT TO VINCENT RN DAYSHIFT NURSE At BEDSIDE FOR CONTINUITY, PT IN STABLE CONDITION.
--- NOTE | 2018-07-17 07:12 | NUR ---
RECEIVED BEDSIDE REPORT FROM SURVEILLANCE SENSOR OFFICER NURSE FOR CONTINUITY OF CARE. PATIENT IS AOX4. PATIENT IS RESTING ON BED AT THIS TIME. PATIENT IS ABLE TO FOLLOW COMMANDS AND MAKE NEEDS KNOWN. RESPIRATION IS EVEN AND UNLABORED. PATIENT IS ON RA AND SPO2 IS AT 93% AT THIS TIME. DENIES PAIN AND SOB. NO SIGNS OF DISTRESS NOTED. IV ON L HAND 24G, INTACT AND CLEAN, INFUSING PER MD ORDER. SKIN CLEAN AND INTACT. PATIENT IS ABLE TO AMBULATE WITH STANDBY ASSISTANCE. DISCUSSED PLAN OF CARE WITH PATIENT AND PATIENT VERBALIZED UNDERSTANDING. TELE MONITOR ATTACHED. BED IN LOW POSITION AND CALL LIGHT WITHIN REACH. INSTRUCTED PATIENT TO USE THE CALL LIGHT FOR ANY ASSISTANCE AND PATIENT WAS AWARE.
--- NOTE | 2018-07-17 07:45 | NUR ---
PATIENT SAID, " I DON'T LIKE THE HOSPITAL FOOD. THEY ARE TASTELESS. I WOULD LIKE A SANDWICH ." CALLED [facility] AND SPOKE TO CNC APPLICATIONS ENGINEER AND ORDER A SANDWICH. INFORMED PATIENT THAT SANDWICH WILL BE DELIVERY TO HER ROOM ONCE [facility] BRING IT TO THE UNIT. PATIENT VERBALIZED OK.
[2018-07-17 08:00] VITALS: BP 126/65
--- NOTE | 2018-07-17 08:02 | NUR ---
PATIENT REQUESTED FOR AN ORANGE JUICE. PROVIDED REQUEST.
[2018-07-17] MEDS: BLOOD GLUCOSE MONITORING 1 DEV DEV FS SCH ×2 (08:17→11:51)
--- NOTE | 2018-07-17 08:45 | NUR ---
PATIENT WANTS TO TAKE A SHOWER. ASKED DR FORTE AND PER DR FORTE, SHE MAY TAKE A SHOWER. NOTIFIED RESTAURANT SERVER TO PREPARE SUPPLIES FOR PATIENT TO TAKE SHOWER. DISCONNECTED PATIENT FROM IV PUMP. NO SIGNS OF DISTRESS NOTED.
[2018-07-17] MEDS ORDERED: predniSONE 20 MG TAB PO SCH (09:00)
[2018-07-17] MEDS ORDERED: LORATADINE 10 MG TAB PO SCH (09:00)
[2018-07-17] MEDS ORDERED: ATORVASTATIN 20 MG TAB PO SCH (09:00)
[2018-07-17 09:07] LABS: BASOPHILS % (AUTO) 0.2 % (0.0-2.0); EOSINOPHILS # (AUTO) 0.1 K/uL (0-0.4); EOSINOPHILS % (AUTO) 0.9 % (0.0-4.0); HEMATOCRIT 37.7 % (36-48); HEMOGLOBIN 12.2 g/dL (12.0-16.0); LYMPHOCYTES # (AUTO) 4.7 K/uL (2.5-16.5); LYMPHOCYTES % (AUTO) 30.8 % (20.5-51.1); MEAN CORPUSCULAR HEMOGLOBIN 29 pg (27-31); MEAN CORPUSCULAR HGB CONC 33 g/dL (33-37); MEAN CORPUSCULAR VOLUME 88.9 fL (80-94); MONOCYTES % (AUTO) 6.9 % (1.7-9.3); NEUTROPHILS # (AUTO) 9.3 K/uL (1.8-7.7); NEUTROPHILS % (AUTO) 61.2 % (42.2-75.2); PLATELET COUNT (AUTO) 304 K/uL (140-450); RED BLOOD CELL COUNT(AUTO) 4.24 MIL/uL (4.20-5.40); RED CELL DISTRIBUTION WIDTH 14.1 % (11.6-13.7); WHITE BLOOD COUNT (AUTO) 15.1 K/uL (4.8-10.8)
--- NOTE | 2018-07-17 09:30 | NUR ---
PATIENT CAME BACK FROM SHOWER. APPLIED TELE MONITOR. NO SIGNS OF DISTRESS NOTED.
[2018-07-17 09:39] LABS: ANION GAP 11.2 (8-16); CARBON DIOXIDE 28.6 mmol/L (21-32); CREATININE 0.6 mg/dL (0.6-1.3); POTASSIUM 3.8 mmol/L (3.5-5.1)
[2018-07-17 09:50] LABS: PHOSPHORUS 4.7 mg/dL (2.5-4.9)
--- NOTE | 2018-07-17 09:55 | NUR ---
DR FORTE IS TALKING TO PATIENT AT BEDSIDE. NO SIGNS OF DISTRESS NOTED.
[2018-07-17 10:00] VITALS: BP 125/63
[2018-07-17] MEDS: FAMOTIDINE 20 MG TAB PO SCH (10:07)
[2018-07-17] MEDS: guaiFENesin 600 MG TABER PO SCH (10:07)
[2018-07-17] MEDS: CYCLOBENZAPRINE 10 MG TAB PO SCH ×2 (10:08→14:01)
[2018-07-17] MEDS: METOPROLOL 25 MG TAB PO SCH (10:09)
[2018-07-17] MEDS: LISINOPRIL 20 MG TAB PO SCH (10:09)
--- NOTE | 2018-07-17 10:10 | NUR ---
ADMINISTERED MEDS PER MD ORDER, PATIENT TOLERATED WELL. PATIENT IS TALKING ON HER PHONE. NO SIGNS OF DISTRESS NOTED. BED IN LOW POSITION AND CALL LIGHT WITHIN REACH. INSTRUCTED PATIENT TO USE THE CALL LIGHT FOR ANY ASSISTANCE AND PATIENT WAS AWARE,
[2018-07-17] MEDS: ASPIRIN 81 MG TAB.CHEW PO SCH (10:12)
--- NOTE | 2018-07-17 11:14 | NUR ---
PATIENT IS RESTING ON BED AND WATCHING TV AT THIS TIME. NO SIGNS OF DISTRESS NOTED. SAFETY MEASURES IN PLACE AND TELE MONITOR ATTACHED.
[2018-07-17 12:00] VITALS: BP 105/49
--- NOTE | 2018-07-17 12:15 | NUR ---
PATIENT COMPLAINED THAT SHE DOES NOT LIKE HER LUNCH AND WOULD LIKE TO GET A SANDWICH. REQUESTED SANDWICH FROM [facility].
[2018-07-17] MEDS ORDERED: METF500T PO (12:17)
--- NOTE | 2018-07-17 12:25 | NUR ---
RECEIVED SANDWICH AND BROUGHT IN FOR PATIENT. PATIENT REQUESTED DRINK AND BEE, PROVIDED REQUEST.
--- NOTE | 2018-07-17 13:18 | NUR ---
PATIENT SAID SHE NEEDS BREATHING TREATMENT NOW. PAGED RT, AND PER RT, HE IS COMING TO HER ROOM NOW. INFORMED PATIENT ABOUT IT.
--- NOTE | 2018-07-17 14:00 | NUR ---
DISCHARGE DOCUMENT HAS BEEN PREPARED. AWAITING FOR FAMILY TO ARRIVED.
--- NOTE | 2018-07-17 14:20 | NUR ---
DISCHARGE INSTRUCTION PROVIDED TO PATIENT AT BEDSIDE. EDUCATED PATIENT ON MD FOLLOW UP, GO THE NEAREST EMERGENCY ROOM OR CALL 911 IMMEDIATELY IF SHE FEELS PAIN, FEVER, SHORTNESS OF BREATH, SWELLING, GENERALIZED WEAKNESS AND OR WORSEN SYMPTOMS. EDUCATED PATIENT ON DISEASE MANAGEMENT, SIGNS AND SYMPTOMS, MEDICATION REGIMEN AND SIDE EFFECTS. PATIENT VERBALIZED UNDERSTANDING. ANSWERED ALL PATIENT'S QUESTIONS. D/C IV AND IV CANNULA INTACT, MINIMAL BLEEDING AT IV SITE. REMOVED TELE MONITOR AND ALL ARM BANDS. RETURNED PATIENT'S OWN MEDICINE FROM PHARMACY AND PATIENT CHECKED AND VERIFIED IT THE CORRECT MEDICINE. DR MAGALLANES PROVIDED WORK EXCUSE PAPER REQUESTED BY PATIENT. PATIENT CHECKED ALL CABINETS AND TOOK ALL HER BELONGINGS. WALKED PATIENT TO THE FRONT LOBBY AND PATIENT IS DISCHARGE AT THIS TIME IN STABLE CONDITION.
[2018-07-19] MEDS ORDERED: predniSONE 10 MG TAB PO SCH (09:00)
== END 2018-07-17 14:20 | disposition home or self-care (01) | DRG 243 ==
LOC: MED 15:29 → MTU 19:46
PROVIDERS: ADMIT General Practice; ATTEND General Practice
DX: K21.9 Gastro-esophageal reflux disease without esophagitis (principal); D68.59 Other primary thrombophilia; E44.0 Moderate protein-calorie malnutrition; J45.901 Unspecified asthma with (acute) exacerbation; E66.01 Morbid (severe) obesity due to excess calories; M94.0 Chondrocostal junction syndrome [Tietze]; E11.9 Type 2 diabetes mellitus without complications; E86.0 Dehydration; R79.89 Other specified abnormal findings of blood chemistry; F32.9 Major depressive disorder, single episode, unspecified; J44.9 Chronic obstructive pulmonary disease, unspecified; F41.9 Anxiety disorder, unspecified; F17.210 Nicotine dependence, cigarettes, uncomplicated; F17.200 Nicotine dependence, unspecified, uncomplicated; E78.5 Hyperlipidemia, unspecified; D72.829 Elevated white blood cell count, unspecified; Z87.01 Personal history of pneumonia (recurrent); Z68.36 Body mass index [BMI] 36.0-36.9, adult; Z88.5 Allergy status to narcotic agent; Z88.8 Allergy status to other drugs, medicaments and biological substances; Z83.3 Family history of diabetes mellitus; Z82.49 Family history of ischemic heart disease and other diseases of the circulatory system
CPT/HCPCS: 36415; 36600; 71045; 80048; 80053; 80305; 81003; 82803; 82948; 83036; 83690; 83735; 83880; 84100; 84134; 84443; 84484; 85025; 85610; 85730; 87040; 87081; 93005; 94640; 99285; J1644; J1815; J1885; J2060; J7030; J7512; J7620

== ENCOUNTER 2018-11-11 16:19 | Emergency (ER) | payer MEDICAID ==
[~2018-11-11] VITALS: Ht 152.4 cm; Wt 83.9 kg
[~2018-11-11 16:19] MED LIST: ASPI-1718 PO; DONE10TA10 PO; ELA10 PO; LISI-420 PO; METF500T PO
[2018-11-11 16:26] VITALS: BP 133/79
--- NOTE | 2018-11-11 16:34 | NUR ---
PT TAKEN TO BED 8.
--- NOTE | 2018-11-11 16:45 | NUR ---
PT C/O DIZZINESS, GENERALIZED BODY WEAKNESS X2 DAYS. PT CURRENTLY HAS A HOLTER MONITOR ON FOR MONITORING HER HEART FOR PALPITATIONS. PT REPORTS NAUSEA, DENIES VOMITING/DIARRHEA. PATIENT STATES PAIN OF 6/10 AT THIS TIME; VSS; PATIENT POSITIONED FOR COMFORT; HOB ELEVATED; BEDRAILS UP X1; BED DOWN. ER MD MADE AWARE OF PT STATUS.
--- NOTE | 2018-11-11 17:50 | NUR ---
PT STATES HAVING 10/[address] TOWNSEND NOTIFIED.
[2018-11-11] MEDS ORDERED: NACL 0.9% 1,000 ML IV ONE (18:10)
[2018-11-11 18:40] LABS: APPEARANCE,URINE CLEAR (CLEAR); BILIRUBIN,URINE NEGATIVE (NEGATIVE); BLOOD, URINE 1+ (NEGATIVE); COLOR,URINE YELLOW (YELLOW); LEUKOCYTE ESTERASE ,URINE NEGATIVE (NEGATIVE); NITRITE, URINE NEGATIVE (NEGATIVE); PH,URINE 5.5 (5.0-9.0); UGLUCOSE NEGATIVE (NEGATIVE)
[2018-11-11] MEDS ORDERED: HYDROcodone/APAP 7.5/325 MG 1 TAB PO ONE (18:45)
[2018-11-11] MEDS ORDERED: KETOROLAC 30 MG/ML VIAL IVP ONE (18:45)
[2018-11-11 18:46] LABS: BASOPHILS % (AUTO) 0.5 % (0.0-2.0); EOSINOPHILS # (AUTO) 0.1 K/uL (0-0.4); EOSINOPHILS % (AUTO) 0.7 % (0.0-4.0); HEMATOCRIT 42.1 % (36-48); HEMOGLOBIN 13.8 g/dL (12.0-16.0); LYMPHOCYTES # (AUTO) 1.5 K/uL (2.5-16.5); LYMPHOCYTES % (AUTO) 14.7 % (20.5-51.1); MEAN CORPUSCULAR HEMOGLOBIN 29 pg (27-31); MEAN CORPUSCULAR HGB CONC 33 g/dL (33-37); MEAN CORPUSCULAR VOLUME 87.8 fL (80-94); MONOCYTES # (AUTO) 0.4 K/uL (0.8-1.0); MONOCYTES % (AUTO) 3.8 % (1.7-9.3); NEUTROPHILS # (AUTO) 8.2 K/uL (1.8-7.7); NEUTROPHILS % (AUTO) 80.3 % (42.2-75.2); PLATELET COUNT (AUTO) 293 K/uL (140-450); RED CELL DISTRIBUTION WIDTH 13.9 % (11.6-13.7); WHITE BLOOD COUNT (AUTO) 10.2 K/uL (4.8-10.8)
[2018-11-11 18:49] LABS: RBC,URINE 0-5 /HPF (0-5); WBC,URINE 0-5 /HPF (0-5)
[2018-11-11 18:51] LABS: ANION GAP 12.2 (8-16); CARBON DIOXIDE 26.4 mmol/L (21-32); CREATININE 0.6 mg/dL (0.6-1.3); POTASSIUM 3.6 mmol/L (3.5-5.1)
[2018-11-11 18:56] LABS: ALBUMIN 3.3 g/dL (3.4-5.0); TOTAL BILIRUBIN 0.4 mg/dL (0.0-1.0)
--- NOTE | 2018-11-11 19:03 | NUR ---
PT C/O HEADACHE, ADMINISTERED TORADOL IVP WITH EDUCATION. PT REFUSED NORCO, PT STATED THAT SHE GETS NAUSEOUS AND BREAKS OUT WITH HIVES WITH NORCO AND MORPHINE. DR TOWNSEND MADE AWARE.
--- NOTE | 2018-11-11 19:21 | NUR ---
Pt report given to JIM Hickman. Transfer of care at this time.
[2018-11-11 20:20] VITALS: BP 112/55
--- NOTE | 2018-11-11 20:21 | NUR ---
Patient discharged with v/s stable. Written and verbal after care instructions given and explained. Patient verbalized understanding. Ambulatory with steady gait. All questions addressed prior to discharge. Advised to follow up with PMD.
== END 2018-11-11 20:21 | disposition home or self-care (01) ==
LOC: MED 16:19
DX: B34.9 Viral infection, unspecified (principal); J44.9 Chronic obstructive pulmonary disease, unspecified; I10 Essential (primary) hypertension; F17.210 Nicotine dependence, cigarettes, uncomplicated; Z79.84 Long term (current) use of oral hypoglycemic drugs; Z79.82 Long term (current) use of aspirin; Z88.6 Allergy status to analgesic agent; Z88.5 Allergy status to narcotic agent; Z88.2 Allergy status to sulfonamides; Z88.8 Allergy status to other drugs, medicaments and biological substances
CPT/HCPCS: 36415; 80053; 81001; 85025; 96361; 96374; 99283; J1885; J7030